=== PATIENT | male | born 1990 | race Two or more races ===

== ENCOUNTER 2017-06-13 23:45 | Emergency (ER) | payer SELFPAY ==
[2017-06-14] MEDS: FAMOTIDINE 20 MG/2 ML VIAL IVP (00:28)
[2017-06-14] MEDS: KETOROLAC 30 MG/ML INJ. IV (00:29)
[2017-06-14 00:31] LABS: ADD MAN DIFF? NO
[2017-06-14] MEDS: LIDO:MAALOX:DONNATAL 1:1:1 15 ML SINGLE DOSE SWSW (00:31)
[2017-06-14 00:34] LABS: BASO # 0.1 x10^3/uL (0.0-0.2); BASO % 1 % (0-3); EOS # 0.4 x10^3/uL (0.0-0.7); EOS % 4 % (0-3); HEMATOCRIT 44.1 % (39.0-53.0); HEMOGLOBIN 15.1 g/dL (13.0-17.5); LYMPH # 5.1 x10^3/uL (1.0-4.8); LYMPH % 48 % (24-48); MEAN CORPUSCULAR HEMOGLOBIN 31 pg (25-35); MEAN CORPUSCULAR HGB CONC 34 g/dL (31-37); MEAN CORPUSCULAR VOLUME 90 fL (79-100); MONO # 0.8 x10^3/uL (0.0-1.1); MONO % 8 % (0-9); NEUT # 4.3 x10^3uL (1.8-7.7); NEUT % 40 % (31-73); PLATELET COUNT 400 x10^3/uL (140-400); RED CELL DISTRIBUTION WIDTH 13.7 % (11.5-14.5); WHITE BLOOD COUNT 10.7 x10^3/uL (4.0-11.0)
[2017-06-14 00:44] LABS: D-DIMER 0.42 ug/mlFEU (0.00-0.50)
[2017-06-14 00:48] LABS: ANION GAP 6 (6-14); BLOOD UREA NITROGEN 17 mg/dL (8-26); BUN/CREATININE RATIO 14 (6-20); CALCIUM 8.7 mg/dL (8.5-10.1); CARBON DIOXIDE 32 mmol/L (21-32); CHLORIDE 103 mmol/L (98-107); CREATININE 1.2 mg/dL (0.7-1.3); GFR 72.6; GLUCOSE 147 mg/dL (70-99); POTASSIUM 3.7 mmol/L (3.5-5.1); SODIUM 141 mmol/L (136-145)
[2017-06-14 00:50] LABS: ALBUMIN 3.8 g/dL (3.4-5.0); ALK PHOS 105 U/L (46-116); ALT (SGPT) 126 U/L (16-63); AST (SGOT) 57 U/L (15-37); LIPASE 209 U/L (73-393); TOTAL BILIRUBIN 0.4 mg/dL (0.2-1.0); TOTAL PROTEIN 7.7 g/dL (6.4-8.2)
[2017-06-14 00:53] LABS: TROPONINI < 0.017 ng/mL (0.000-0.055)
== END 2017-06-14 01:40 | disposition home or self-care (01) ==
LOC: ER 23:45
DX: R07.89 Other chest pain (principal); R10.30 Lower abdominal pain, unspecified; F17.200 Nicotine dependence, unspecified, uncomplicated; F14.10 Cocaine abuse, uncomplicated
CPT/HCPCS: 36415; 71045; 80053; 83690; 84484; 85025; 85379; 93005; 96374; 96375; 99285-25; J1885; S0028